=== PATIENT | female | born 1995 | race Two or more races ===

== ENCOUNTER 2017-01-02 21:34 | Observation (INO) | payer MEDICAID, OTHER ==
[2017-01-02] MEDS ORDERED: TERBUTALINE SULFATE 1 MG/ML 1ML VIAL SC ONE (22:09)
[2017-01-02 23:52] LABS: Urine RBC None Seen /hpf (0 - 4)
[2017-01-03 00:01] LABS: Urine Bilirubin Negative (Negative); Urine Blood Negative /uL (Negative); Urine Color Colorless (Yellow); Urine Glucose Normal (Normal); Urine Ketone Negative (Negative); Urine Nitrite Negative (Negative); Urine Squamous Epithelial Cell FEW /hpf (<5); Urine Urobilinogen Normal (Negative); Urine pH 6.5 (5.0-8.0)
== END 2017-01-03 00:57 | disposition home or self-care (01) | DRG 563 ==
LOC: LDRP 21:34
PROVIDERS: ADMIT Obstetrics & Gynecology; ATTEND Obstetrics & Gynecology
DX: O60.02 Preterm labor without delivery, second trimester (principal); O26.892 Other specified pregnancy related conditions, second trimester; R10.9 Unspecified abdominal pain; Z3A.27 27 weeks gestation of pregnancy
CPT/HCPCS: 59025; 80307; 81001; 81002; 96361; 96366; 96372; G0378; J3105